=== PATIENT | female | born 1950 ===

== ENCOUNTER 2018-05-06 14:26 | Inpatient (IN) | payer OTHER ==
[~2018-05-06] VITALS: Ht 152.4 cm; Wt 52.6 kg
[2018-05-06] MEDS ORDERED: TRAZODONE HCL50 MG PO (15:23)
[2018-05-06] MEDS ORDERED: CLONAZEPAM0.5 MG PO (15:23)
[2018-05-06] MEDS ORDERED: LOSARTAN-HCTZ1 EAC1 PO (15:23)
[2018-05-06] MEDS ORDERED: ATORVASTATIN CA40 MG PO (15:24)
[2018-05-06] MEDS ORDERED: MULTI VITAMIN1 EACH PO (15:24)
[2018-05-15] MEDS ORDERED: DOCUSATE SODIU100 MG PO (12:00)
[2018-05-15] MEDS ORDERED: GABAPENTIN800 MG PO (12:00)
[2018-05-15] MEDS ORDERED: CLONAZEPAM1 MG PO (12:01)
[2018-05-15] MEDS ORDERED: AMOX-CLAV 875-1 EACH PO (12:01)
[2018-05-15] MEDS ORDERED: PERCOCET 5-3251 EACH PO (12:01)
== END 2018-05-15 18:19 | disposition home or self-care (01) | DRG 455 ==
LOC: O/R 05-14 04:50 → PED 05-14 04:50 → SURG 05-14 07:00 → PED 05-14 13:23
PROVIDERS: Orthopaedic Surgery Orthopaedic Surgery of the Spine
PROC: 0SG00A0 Fusion of Lumbar Vertebral Joint with Interbody Fusion Device, Anterior Approach, Anterior Column, Open Approach (ICD-10-PCS; 2018-05-14)
PROC: 0SG00J1 Fusion of Lumbar Vertebral Joint with Synthetic Substitute, Posterior Approach, Posterior Column, Open Approach (ICD-10-PCS; 2018-05-14)
PROC: 07DS3ZZ Extraction of Vertebral Bone Marrow, Percutaneous Approach (ICD-10-PCS; 2018-05-14)
PROC: 0ST20ZZ Resection of Lumbar Vertebral Disc, Open Approach (ICD-10-PCS; principal; 2018-05-14 07:00)
DX: M43.16 Spondylolisthesis, lumbar region (principal); M48.061 Spinal stenosis, lumbar region without neurogenic claudication; M51.16 Intervertebral disc disorders with radiculopathy, lumbar region; I10 Essential (primary) hypertension

== ENCOUNTER 2018-07-29 15:15 | Outpatient (CLI) | payer OTHER ==
[~2018-07-29 15:15] MED LIST: AMOX-CLAV 875-1 EACH PO; ATORVASTATIN CA40 MG PO; CLONAZEPAM0.5 MG PO; CLONAZEPAM1 MG PO; DOCUSATE SODIU100 MG PO; GABAPENTIN800 MG PO; LOSARTAN-HCTZ1 EAC1 PO; MULTI VITAMIN1 EACH PO; PERCOCET 5-3251 EACH PO; TRAZODONE HCL50 MG PO
== END 2018-07-29 15:23 | disposition home or self-care (01) ==
LOC: RAD 15:15
DX: M51.36 Other intervertebral disc degeneration, lumbar region (principal); Z98.1 Arthrodesis status

== ENCOUNTER 2024-06-02 09:52 | Day surgery (SDC) | payer OTHER ==
[2024-05-23 09:54] LABS: HEMATOCRIT 35.8 % (36.0-45.00); MEAN CELL VOLUME 87.7 fL (80.00-100.00); MEAN CORPUSCULAR HEMOGLOBIN 29.5 pg (27.00-32.0); MEAN CORPUSCULAR HGB CONC 33.6 g/dl (32.0-36.0); PLATELET COUNT 221 K/uL (150-450); RED BLOOD COUNT 4.08 M/uL (4.00-6.00); RED CELL DISTRIBUTION WIDTH 12.8 % (11.5-14.5)
[2024-05-23 09:58] LABS: URINE APPEARANCE Clear; URINE BILIRRUBIN Negative (NEGATIVE); URINE BLOOD Negative; URINE COLOR Yellow; URINE GLUCOSE Negative (NEGATIVE); URINE KETONE Negative (NEGATIVE); URINE LEUKOCYTE Negative; URINE NITRATE Negative; URINE PROTEIN Negative (NEGATIVE); URINE UROBILINOGEN 0.2 E.U./dl
[2024-05-23 10:01] VITALS: BP 145/88
[2024-05-23 10:04] LABS: URINE BACTERIA 7.5 uL (0.0-1933); URINE EPITHELIAL CELLS 2.9 uL (0.0-38.8); URINE RBC 4.8 uL (0.0-20.8); URINE WBC 2.3 uL (0.0-23.2)
[2024-05-23 10:14] LABS: INR 0.97; PARTIAL THROMBOPLASTIN TIME 26.7 SECONDS (22.0-34.0); PROTHROMBIN TIME 10.6 SECONDS (9.0-11.5)
[2024-05-23 10:36] LABS: URINE CAST 1.22 uL (0.0-1.40)
[2024-05-23 10:52] LABS: CALCIUM 9.4 mg/dL (8.5-10.1); CREATININE SERUM 0.92 mg/dL (0.55-1.02); GFR 59.51; POTASSIUM 3.02 mEq/L (3.5-5.1)
[~2024-06-02] VITALS: Ht 152.4 cm; Wt 54.4 kg
[2024-06-02] MEDS ORDERED: EPINEPHRINE HCL/PF 1 MG/ML AMPUL IR ONE (13:45)
[2024-06-02] MEDS ORDERED: CEFAZOLIN SODIUM 1,000 MG VIAL IV ONE ×2 (13:45→14:30)
[2024-06-02] MEDS ORDERED: DUI500 PO (14:29)
[2024-06-02] MEDS ORDERED: TRAM1TAB98 PO (14:30)
[2024-06-02] MEDS ORDERED: MEPERIDINE HCL/PF 25 MG/ML VIAL IM PRN (14:30)
[2024-06-02] MEDS ORDERED: PROMETHAZINE HCL 25 MG/ML AMPUL IM PRN (14:30)
[2024-06-02] MEDS ORDERED: MORPHINE SULFATE 4 MG/ML VIAL IV ONE ×2 (15:10→18:10)
[2024-06-02] MEDS ORDERED: ENALAPRILAT DIHYDRATE 1.25 MG/ML VIAL IV ONE ×2 (15:40→16:10)
[2024-06-02] MEDS ORDERED: CEFADROXIL 500 MG CAPSULE PO SCH (21:00)
== END 2024-06-02 18:50 | disposition home or self-care (01) ==
LOC: CIR.AMB 09:52
PROVIDERS: ATTEND Orthopaedic Surgery Sports Medicine
DX: M23.342 Other meniscus derangements, anterior horn of lateral meniscus, left knee (principal); M17.12 Unilateral primary osteoarthritis, left knee; M65.862 Other synovitis and tenosynovitis, left lower leg; Z88.2 Allergy status to sulfonamides